=== PATIENT | male | born 1965 | race Hispanic/Latino ===

== ENCOUNTER 2022-04-26 10:26 | Emergency (ER) | payer BC ==
[~2022-04-26] VITALS: Ht 167.6 cm; Wt 77.3 kg
[2022-04-26] VITALS (8 sets, daily range): BP systolic 139–163; BP diastolic 70–87
[2022-04-26 11:03] LABS: HEMATOCRIT 36.8 % (39.0-50.0); HEMOGLOBIN 12.7 g/dl (14.0-18.0); IMMATURE GRANULOCYTES 0.2 % (0.0-5.0); MEAN CELL VOLUME 93.6 fL CALC (80.0-100.0); MEAN CORPUSCULAR HGB 32.3 pG CALC (26.0-32.0); MEAN CORPUSCULAR HGB CONC 34.5 g/dL CAL (32.0-36.0); NEUT# 2.85 thou/uL (1.82-7.42); RED BLOOD COUNT 3.93 mill/uL (4.70-6.10); RED CELL DISTRI WIDTH 12.6 % (11.5-15.5)
[2022-04-26 11:25] LABS: ALBUMIN 3.5 g/dL (3.2-5.0); BILIRUBIN, TOTAL 0.7 mg/dL (0.0-1.4); CREATININE 2.2 mg/dL (0.7-1.3); TOTAL PROTEIN 6.3 g/dL (6.3-8.2)
[2022-04-26 12:55] LABS: URINE BILIRUBIN - DIPSTICK NEGATIVE (NEGATIVE); URINE BLOOD DIPSTICK NEGATIVE (NEGATIVE); URINE COLOR YELLOW; URINE GLUCOSE - DIPSTICK >=1000 mg/dL (NEGATIVE); URINE KETONE NEGATIVE (NEGATIVE); URINE LEUK ESTERASE NEGATIVE (NEGATIVE); URINE PROTEIN - DIPSTICK >=300 mg/dL (NEG-TRACE); URINE SPECIFIC GRAVITY 1.025; URINE UROBILINOGEN - DIPSTICK 0.2 E.U./dL (0.2)
[2022-04-26 13:06] LABS: URINE MUCUS MODERATE hpf (NONE-FEW); URINE NITRITE - DIPSTICK NEGATIVE (Negative)
[2022-04-26] MEDS ORDERED: CITRATE OF MEGNESIA PO (13:15)
[2022-04-26] MEDS ORDERED: MIRALAX17 GM PO (13:15)
[2022-04-26] MEDS ORDERED: TRAMADOL HCL50 MG PO (13:15)
== END 2022-04-26 13:55 | disposition home or self-care (01) | DRG 392 ==
LOC: ED 10:26
PROVIDERS: Family Medicine
DX: R10.11 Right upper quadrant pain (principal); I12.9 Hypertensive chronic kidney disease with stage 1 through stage 4 chronic kidney disease, or unspecified chronic kidney disease; E11.22 Type 2 diabetes mellitus with diabetic chronic kidney disease; N18.30 Chronic kidney disease, stage 3 unspecified; E11.65 Type 2 diabetes mellitus with hyperglycemia

== ENCOUNTER 2024-09-15 02:30 | Emergency (ER) | payer BC ==
[~2024-09-15] VITALS: Ht 167.6 cm; Wt 81.6 kg
[2024-09-15] VITALS (15 sets, daily range): BP systolic 148–193; BP diastolic 89–114
[~2024-09-15 02:30] MED LIST: BACTRIM DS1 TAB PO; CEPHALEXIN500 M1 PO; CITRATE OF MEGNESIA PO; MIRALAX17 GM PO; TRAMADOL HCL50 MG PO; TRAMADOL HYDROC50 M1 PO
[2024-09-15] MEDS ORDERED: NITROGLYCERIN 2% OINT UD 1 GM/PAK TD ONE (02:45)
[2024-09-15 03:09] LABS: BASO% 0.5 % (0-3); EOS% 3.1 % (0-8); HEMATOCRIT 40.2 % (39.0-50.0); HEMOGLOBIN 13.4 g/dl (14.0-18.0); IMMATURE GRANULOCYTES 0.4 % (0.0-5.0); LYMPH% 26.5 % (15-41); MEAN CORPUSCULAR HGB 32.7 pG CALC (26.0-32.0); MEAN CORPUSCULAR HGB CONC 33.3 g/dL CAL (32.0-36.0); MONO% 6.8 % (2-13); NEUT# 4.98 thou/uL (1.82-7.42); NEUT% 62.7 % (42-76); RED BLOOD COUNT 4.1 mill/uL (4.70-6.10); RED CELL DISTRI WIDTH 12.8 % (11.5-15.5)
[2024-09-15] MEDS ORDERED: FUROSEMIDE 40 MG/4 ML SDV IV ONE (03:10)
[2024-09-15] MEDS ORDERED: NOVOLOG MIX SC (03:16)
[2024-09-15] MEDS ORDERED: TRESIBA FL100 UNIT/M SC (03:17)
[2024-09-15] MEDS ORDERED: TENORMIN25 MG PO (03:18)
[2024-09-15] MEDS ORDERED: FARXIGA10 MG PO (03:19)
[2024-09-15 03:20] LABS: ALBUMIN 4.1 g/dL (3.2-5.0); BILIRUBIN, TOTAL 0.5 mg/dL (0.2-1.3); POTASSIUM 4.4 mmol/l (3.5-5.1); TOTAL PROTEIN 7.1 g/dL (6.3-8.2)
[2024-09-15] MEDS ORDERED: ENALAPRIL10 MG PO (03:20)
[2024-09-15] MEDS ORDERED: COZAAR25 MG PO (03:20)
[2024-09-15 03:23] LABS: CREATININE 4.1 mg/dL (0.7-1.3)
[2024-09-15 03:35] LABS: INTERNATIONAL NORMALIZED RATIO 0.9 RATIO (0.7-1.3)
[2024-09-15] MEDS ORDERED: Heparin SODIUM (Porcine) 5,000 UNITS/ML SDV IV ONE (03:35)
[2024-09-15] MEDS ORDERED: Heparin SODIUM (Porcine) 500 ML IV ONE (03:35)
[2024-09-15 03:51] LABS: PROTHROMBIN TIME 9.9 SECONDS (9.0-12.5)
== END 2024-09-15 04:35 | disposition short-term general hospital (02) | DRG 281 ==
LOC: ED 02:30
PROVIDERS: Family Medicine
PROC: 5A09357 Assistance with Respiratory Ventilation, Less than 24 Consecutive Hours, Continuous Positive Airway Pressure (ICD-10-PCS; principal; 2024-09-15)
DX: I21.4 Non-ST elevation (NSTEMI) myocardial infarction (principal); R04.2 Hemoptysis; I12.9 Hypertensive chronic kidney disease with stage 1 through stage 4 chronic kidney disease, or unspecified chronic kidney disease; E11.22 Type 2 diabetes mellitus with diabetic chronic kidney disease; N18.9 Chronic kidney disease, unspecified; E11.40 Type 2 diabetes mellitus with diabetic neuropathy, unspecified; Z79.4 Long term (current) use of insulin
CPT/HCPCS: J1644; J1940